=== PATIENT | female | born 1950 | race Caucasian/White ===

== ENCOUNTER → 2022-08-21 | Day surgery (SDC) | payer MEDICARE ==
[~2022-08-21] MED LIST: AMBIEN5 MG PO; CALAN SR240 MG PO; LISINOPRIL10 MG PO; MIDAZOLAM HCL 2 MG/2 ML VIAL ONE; MULTI-VITAMIN1 EACH PO; OR PHACO EYE KIT ONE; PRAVASTATIN SOD40 MG PO; PREOP PHACO EYE KIT ONE; SERTRALINE HCL100 MG PO
[2022-08-21 11:05] VITALS: BP 154/58
== END | disposition home or self-care (01) ==
LOC: OR 08:14
PROVIDERS: ATTEND Ophthalmology
DX: H25.12 Age-related nuclear cataract, left eye (principal); I10 Essential (primary) hypertension; E78.5 Hyperlipidemia, unspecified; Z79.899 Other long term (current) drug therapy
CPT/HCPCS: 66984; J2250; V2632